=== PATIENT | female | born 1945 | race Caucasian/White ===

== ENCOUNTER → 2020-07-15 | Outpatient (CLI) | payer MEDICARE, OTHER ==
[~2020-07-15] MED LIST: ADMELOG SO100 UNIT/1 SC; ALDACTONE 25MG25 MG PO; ARIMIDEX1 MG PO; ASPIRIN CHEWABL81 MG PO; BIOTIN1 MG PO; CALCIUM500 M1 PO; COREG 12.5MG12.5 MG PO; FISH OIL 1,0001 EACH PO; ISORDIL TAB 3030 MG PO; JANUVIA25 MG PO; LANTUS SOL100 UNIT/1 SQ; LASIX20 MG PO; LEVOTHYROXINE112 MC1 PO; LEXAPRO TAB 1010 MG PO; LIPITOR TAB 2020 MG PO; NEURONTIN 100100 MG PO; NITROSTAT0.4 MG SL; NORVASC5 MG PO; PEPCID40 MG PO; PLAVIX 75 MG TA75 MG PO; POLYETHYLENE GLY1 GM MC; VITAMIN D 40400 UNIT PO; WELLBUTRIN SR150 M1 PO; ZYLOPRIM 100 M100 MG PO
== END ==
LOC: EMI 09:00
DX: H90.3 Sensorineural hearing loss, bilateral (principal)
CPT/HCPCS: 70553; A9577

== ENCOUNTER → 2020-09-08 | Day surgery (SDC) | payer MEDICARE, OTHER | END | disposition home or self-care (01) | LOC: OR 06:20 | PROVIDERS: Internal Medicine Gastroenterology | PROC: 0DB78ZX Excision of Stomach, Pylorus, Via Natural or Artificial Opening Endoscopic, Diagnostic (ICD-10-PCS; 2020-09-08) | PROC: 0DB68ZX Excision of Stomach, Via Natural or Artificial Opening Endoscopic, Diagnostic (ICD-10-PCS; principal; 2020-09-08 09:45) | DX: K31.89 Other diseases of stomach and duodenum (principal); K29.60 Other gastritis without bleeding; K21.9 Gastro-esophageal reflux disease without esophagitis; K31.7 Polyp of stomach and duodenum; E78.00 Pure hypercholesterolemia, unspecified; E11.9 Type 2 diabetes mellitus without complications; M19.90 Unspecified osteoarthritis, unspecified site; I25.2 Old myocardial infarction; I11.0 Hypertensive heart disease with heart failure; I50.9 Heart failure, unspecified; E78.5 Hyperlipidemia, unspecified; E66.9 Obesity, unspecified; Z68.38 Body mass index [BMI] 38.0-38.9, adult; Z88.5 Allergy status to narcotic agent; Z79.4 Long term (current) use of insulin; Z79.82 Long term (current) use of aspirin; Z79.02 Long term (current) use of antithrombotics/antiplatelets; Z79.899 Other long term (current) drug therapy; Z95.5 Presence of coronary angioplasty implant and graft | CPT/HCPCS: J2704; J7040 ==

== ENCOUNTER → 2020-11-19 | Outpatient (CLI) | payer MEDICARE, OTHER | LOC: RAD 07:36 | DX: R13.14 Dysphagia, pharyngoesophageal phase (principal); K21.9 Gastro-esophageal reflux disease without esophagitis | CPT/HCPCS: 74220 ==